=== PATIENT | male | born 1950 | race Caucasian/White ===

== ENCOUNTER 2020-05-30 21:44 | Emergency (ER) | payer OTHER ==
[~2020-05-30] VITALS: Ht 190.5 cm; Wt 111.1 kg
[2020-05-30] MEDS ORDERED: LIPITOR 20 MG T20 M1 PO (22:37)
[2020-05-30] MEDS ORDERED: LAXATIVE SUPPOS10 MG RECTAL (22:38)
[2020-05-30] MEDS ORDERED: BUMETANIDE 1 MG1 M1 PO (22:39)
[2020-05-30] MEDS ORDERED: BUPROPION HCL150 M1 PO (22:40)
[2020-05-31 00:32] VITALS: BP 124/60
== END 2020-05-31 00:33 | disposition short-term general hospital (02) ==
LOC: ER 21:44
DX: M79.602 Pain in left arm (principal); I10 Essential (primary) hypertension; J44.9 Chronic obstructive pulmonary disease, unspecified; Z79.899 Other long term (current) drug therapy